=== PATIENT | male | born 1980 | race American Indian/Alaskan Native ===

== ENCOUNTER 2017-05-13 08:56 | Emergency (ER) | payer SELFPAY ==
[2017-05-13 09:12] VITALS: O2SAT 100
[2017-05-13 09:27] VITALS: BMI 26.3
--- NOTE | 2017-05-13 10:39 | ED PDOC ---
Arrival/HPI - General Chief Complaint: Lower Extremity Problem/Injury Time Seen by Provider: 05/13/17 09:16 Historian: Patient - History of Present Illness Narrative History of Present Illness (Text): 05/13/17 10:35 36 yo M presents with injury to the L 4th toe last night, when he struck it against a hard object. Reports pain, bruising and swelling. Denies any numbness , or any other injury. PMD none Past Medical History - Provider Review Nursing Documentation Reviewed: Yes - Infectious Disease Hx of Infectious Diseases: None - Psychiatric Hx Substance Use: No - Anesthesia Hx Anesthesia: No Family/Social History - Physician Review Nursing Documentation Reviewed: Yes Family/Social History: No Known Family HX Smoking Status: Never Smoked Hx Alcohol Use: No Hx Substance Use: No Allergies/Home Meds Allergies/Adverse Reactions: Allergies shellfish derived Allergy (Mild, Verified 05/13/17 09:40) ITCHING Review of Systems - Review of Systems Constitutional: Normal. absent: Fatigue, Weight Change, Fevers Musculoskeletal: Normal, Arthralgias. absent: Back Pain, Neck Pain Skin: Normal. absent: Rash, Pruritis, Skin Lesions Physical Exam Vital Signs Reviewed: Yes Vital Signs Temp Pulse Resp BP Pulse Ox 05/13/17 09:11 98.1 F 83 16 156/88 H 100 Temperature: Afebrile Blood Pressure: Hypertensive Pulse: Regular Respiratory Rate: Normal Appearance: Positive for: Well-Appearing, Non-Toxic, Comfortable Pain Distress: Mild Mental Status: Positive for: Alert and Oriented X 3 - Systems Exam Head: Present: Atraumatic, Normocephalic Lower Extremity: Present: NORMAL PULSES, Neurovascularly Intact, Capillary Refill < 2 s, Other (L foot : +tenderness, +mild edema and ecchymosis to the 4th toe, distal sensation intact, cap refill normal). No: Edema, Tenderness, Swelling, Erythema, Temperature Abnormalties Neurological: Present: GCS=15, CN II-XII Intact Skin: Present: Warm, Dry, Normal Color. No: Rashes Medical Decision Making ED Course and Treatment: 05/13/17 10:38 36 yo M presents with injury to the L 4th toe last night. Plan: - XR L foot - tylenol po XR L 4th toe : (+) fracture of the proximal phalanx, (-) dislocation, as read by PA XR results d/w the pt in great detail. Toe taping applied. Advised to f/u with podiatry referral provided in 1-2 days without fail. Advised to return to the ER at any time for any new or worsening symptoms. - RAD Interpretation Radiology Orders: 05/13/17 09:49 FOOT LEFT 4TH DIGIT (TOE) [RAD] Stat - Medication Orders Current Medication Orders: Discontinued Medications Acetaminophen (Tylenol 325mg Tab) 975 mg PO STAT STA Stop: 05/13/17 09:50 Last Admin: 05/13/17 09:58 Dose: 975 mg - PA / [employer] / Resident Statement MD/DO has reviewed & agrees with the documentation as recorded. Disposition/Present on Arrival - Present on Arrival Any Indicators Present on Arrival: No History of DVT/PE: No History of Uncontrolled Diabetes: No Urinary Catheter: No History of Decub. Ulcer: No History Surgical Site Infection Following: None - Disposition Have Diagnosis and Disposition been Completed?: Yes Diagnosis: Toe fracture, left Disposition: HOME/ ROUTINE Disposition Time: 10:30 Patient Plan: Discharge Condition: STABLE Discharge Instructions (ExitCare): Toe Fracture (ED) Print Language: BHUTANESE Additional Instructions: Thank you for letting us take care of you today. You were treated for toe fracture. The emergency medical care you received today was directed at your acute symptoms. If you were prescribed any medication, please fill it and take as directed. It may take several days for your symptoms to resolve. Return to the Emergency Department if your symptoms worsen, do not improve, or if you have any other problems. Please contact one of the physicians/clinics you have been referred to that are listed on the Patient Visit Information form that is included in your discharge packet. Bring any paperwork you were given at discharge with you along with any medications you are taking to your follow up visit. Our treatment cannot replace ongoing medical care by a primary care provider (PCP) outside of the emergency department. Thank you for allowing the [facility] team to be part of your care today. If you had an X-Ray: A Radiologist will review the ED reading if any change in treatment is needed we will contact you. Prescriptions: Naproxen 500 mg PO BID #30 tab Referrals: Ella Stephens, [Primary Care Provider] - Follow up with primary Cyndy Post DPM [Staff Provider] - Follow up with primary Forms: [employer] ([place]), WORK NOTE
--- NOTE | 2017-05-13 11:01 | RAD ---
PROCEDURE: Left 4th toe HISTORY: trauma COMPARISON: Not available TECHNIQUE: Multiple views of left foot attention 4th digit FINDINGS: There is an oblique intra-articular fracture of the distal aspect of the 4th proximal phalanx. There is minimal displacement. There is no other fracture identified. The remaining joint spaces and articular surfaces are intact. IMPRESSION: Oblique intra-articular minimally displaced fracture distal aspect 4th proximal phalanx.
[2017-05-13 11:04] VITALS: BP 154/86; PULSE 80; RESP 17; TEMP 98.5
== END 2017-05-13 11:23 | disposition home or self-care (01) ==
LOC: ED 08:56
DX: S92.512A Displaced fracture of proximal phalanx of left lesser toe(s), initial encounter for closed fracture (principal); W22.8XXA Striking against or struck by other objects, initial encounter; Y93.89 Activity, other specified; Y92.89 Other specified places as the place of occurrence of the external cause

== ENCOUNTER 2017-07-10 08:23 | Emergency (ER) | payer SELFPAY ==
[2017-07-10 08:24] VITALS: BMI 26.3
[2017-07-10 08:38] VITALS: RESP 16; TEMP 98.1
--- NOTE | 2017-07-10 09:31 | ED PDOC ---
Arrival/HPI - General Historian: Patient - History of Present Illness Time/Duration: Other (see HPI) Quality: Aching Context: Home - General Chief Complaint: Back Pain Time Seen by Provider: 07/10/17 08:35 - History of Present Illness Narrative History of Present Illness (Text): 07/10/17 09:28 36-year-old male presents to the emergency department complaining of right flank pain since yesterday morning. Pain constant however pain worsen different times of the day. He is stated is not related with food intake or movement. Patient admitted having similar symptoms in the past year. Patient denies shortness of breath, chest pain, abdominal pain, hematuria, discharge, or testicular pain. Noted urinary frequency for 1 week. (Natasha Nicholson) Past Medical History - Provider Review Nursing Documentation Reviewed: Yes - Infectious Disease Hx of Infectious Diseases: None - Cardiac Hx Cardiac Disorders: No - Pulmonary Hx Respiratory Disorders: No - Neurological Hx Neurological Disorder: No - HEENT Hx HEENT Disorder: No - Renal Hx Renal Disorder: No - Endocrine/Metabolic Hx Endocrine Disorders: No - Hematological/Oncological Hx Blood Disorders: No - Integumentary Hx Dermatological Disorder: No - Musculoskeletal/Rheumatological Hx Musculoskeletal Disorders: No - Gastrointestinal Hx Gastrointestinal Disorders: No - Genitourinary/Gynecological Hx Genitourinary Disorders: No - Psychiatric Hx Psychophysiologic Disorder: No Hx Substance Use: No - Surgical History Hx Orthopedic Surgery: Yes - Anesthesia Hx Anesthesia: No Family/Social History - Physician Review Nursing Documentation Reviewed: Yes Family/Social History: Other (Contributory) Smoking Status: Never Smoked Hx Alcohol Use: No Hx Substance Use: No Allergies/Home Meds Allergies/Adverse Reactions: Allergies shellfish derived Allergy (Mild, Verified 07/10/17 08:38) ITCHING Review of Systems - Review of Systems Constitutional: Normal. absent: Fatigue, Weight Change, Fevers Eyes: Normal ENT: Normal Respiratory: Normal. absent: SOB, Cough Cardiovascular: Normal. absent: Chest Pain Gastrointestinal: Other (Flank pain.). absent: Nausea, Vomiting Genitourinary Male: Frequency. absent: Dysuria, Hematuria, Urinary Output Changes Musculoskeletal: Normal, Back Pain. absent: Arthralgias, Neck Pain, Joint Swelling, Myalgias Skin: Normal. absent: Rash Neurological: Normal. absent: Headache, Dizziness, Focal Weakness, Gait Changes , Speech Changes, Facial Droop, Disequilibrium, Seizure Endocrine: Normal Hemo/Lymphatic: Normal Psychiatric: Normal Physical Exam Temperature: Afebrile Blood Pressure: Normal Pulse: Regular Respiratory Rate: Normal Appearance: Positive for: Well-Appearing, Non-Toxic, Comfortable Pain Distress: None Mental Status: Positive for: Alert and Oriented X 3 - Systems Exam Head: Present: Atraumatic, Normocephalic Pupils: Present: PERRL Extroacular Muscles: Present: EOMI Conjunctiva: Present: Normal Mouth: Present: Moist Mucous Membranes Neck: Present: Normal Range of Motion Respiratory/Chest: Present: Clear to Auscultation, Good Air Exchange. No: Respiratory Distress, Accessory Muscle Use Cardiovascular: Present: Regular Rate and Rhythm, Normal S1, S2. No: Murmurs Abdomen: Present: Normal Bowel Sounds. No: Tenderness, Distention, Peritoneal Signs Back: Present: Normal Inspection. No: CVA Tenderness, Paraspinal Tenderness, Pain with Leg Raise Upper Extremity: Present: Normal Inspection, Normal ROM, NORMAL PULSES, Neurovascularly Intact, Capillary Refill < 2s. No: Cyanosis, Edema Lower Extremity: Present: Normal Inspection, NORMAL PULSES, Normal ROM, Neurovascularly Intact, Capillary Refill < 2 s. No: Edema, CALF TENDERNESS Neurological: Present: GCS=15, CN II-XII Intact, Speech Normal, Motor Func Grossly Intact, Normal Sensory Function, Normal Cerebellar Funct, Gait Normal, Memory Normal Skin: Present: Warm, Dry, Normal Color. No: Rashes Psychiatric: Present: Alert, Oriented x 3, Normal Insight, Normal Concentration Vital Signs Temp Pulse Resp BP Pulse Ox 07/10/17 13:40 56 L 16 117/76 98 07/10/17 11:44 74 16 124/62 98 07/10/17 08:38 98.1 F 70 16 91/62 L 97 Medical Decision Making Re-evaluation Time: 14:40 Reassessment Condition: Re-examined, Improved - Lab Interpretations I have reviewed the lab results: Yes Interpretation: No clinic. lab abnormalty ED Course and Treatment: 07/10/17 14:40 ccession No. : [id number] Patient Name / ID : BRENDA MESA / [id number] Exam Date : 07/10/2017 13:33:44 ( Approved ) Study Comment : Sex / Age : M / 36Y Creator : Tramaine Garcia MD Dictator : Tramaine Garcia MD Sr. Director : Registered Travel Nurse : Tramaine Garcia MD Approver2 : Report Date : 07/10/2017 14:21:18 My Comment : HISTORY: right sided back pain COMPARISON: No prior. FINDINGS: LUNGS: No active pulmonary disease. PLEURA: No significant pleural effusion identified, no pneumothorax apparent. CARDIOVASCULAR: Normal. OSSEOUS STRUCTURES: No significant abnormalities. VISUALIZED UPPER ABDOMEN: Normal. OTHER FINDINGS: None. IMPRESSION: No active disease. 07/10/17 14:40 Re-evaluation. Patient feels better. Discussed results and plan with patient who expresses understanding. All questions answered and there is agreement with the plan to discharge home with instructions. Patient stable for discharge. Return if symptoms persist or worsen He was recommended to follow-up with primary care physician in 1-2 days. To continue taking medication as instructed. Return to emergency if symptoms worsen. (Natasha Nicholson) 07/10/17 16:42 Symptoms not exertional. No associated chest pain or shortness of breath. No dizziness or lightheadedness. No pulsatile masses palpated. There is palpable back pain worse with range of motion. Blood pressure and pulse equal in both upper extremities. NO WEAKNESS NOTED WITH GRASP. Patient able to range upper extremity against resistance with no weakness. Not orthostatic on re- examination. No rash. Denies diabetes. Denies past history of cardiac disease. UA unremarkable. CT report reviewed. Stressed need for close follow-up. On re- exam, no chest pain or shortness of breath, blood pressure stable. (Mehrdad Ortiz) - Lab Interpretations Microbiology Results: Microbiology Results 07/10/17 10:02 Urine Urine Culture - Final No Growth (<1,000 CFU/ML) Lab Results: 07/10/17 10:08 07/10/17 10:08 Lab Results 07/10/17 11:20: Lipase 90 07/10/17 10:08: Sodium 142, Potassium 4.3, Chloride 108 H, Carbon Dioxide 26, Anion Gap 12, BUN 22 H, Creatinine 0.9, Est GFR ( Amer) > 60, Est GFR ( Non-Af Amer) > 60, Random Glucose 82, Calcium 9.2, Total Bilirubin 1.1, AST 23, ALT 23, Alkaline Phosphatase 39, Total Protein 6.8, Albumin 4.1, Globulin 2.7, Albumin/Globulin Ratio 1.5 07/10/17 10:08: WBC 5.5, RBC 4.40, Hgb 13.3 L, Hct 39.3 L, MCV 89.3, MCH 30.2, MCHC 33.8, RDW 13.1, Plt Count 227, MPV 8.8, Gran % 56.8, Lymph % (Auto) 33.0, [place] % (Auto) 7.1 H, Eos % (Auto) 2.9, Baso % (Auto) 0.2, Gran # 3.14, Lymph # 1.8, [place] # 0.4, Eos # 0.2, Baso # 0.01 07/10/17 10:02: Urine Color Light yellow, Urine Appearance Clear, Urine pH 6.0, Ur Specific [place] 1.020, Urine Protein Negative, Urine Glucose (UA) Negative, Urine Ketones Negative, Urine Blood Negative, Urine Nitrate Negative, Urine Bilirubin Negative, Urine Urobilinogen 0.2, Ur Leukocyte Esterase Negative 07/10/17 10:00: D-Dimer, Quantitative < 200 - RAD Interpretation Narrative RAD Interpretations (Text): 07/10/17 12:49 Accession No. : [id number] Patient Name / ID : BRENDA MESA / [id number] Exam Date : 07/10/2017 11:15:27 ( Approved ) Study Comment : Sex / Age : M / 36Y Creator : Tramaine Garcia MD Dictator : Tramaine Garcia MD Sr. Director : Registered Travel Nurse : Tramaine Garcia MD Approver2 : Report Date : 07/10/2017 12:32:40 My Comment : PROCEDURE: CT Abdomen and Pelvis without intravenous contrast HISTORY: Right flank pain COMPARISON: None. TECHNIQUE: Without contrast.. Contrast Dose: Radiation dose: Total exam DLP = 674 mGy-cm. This CT exam was performed using one or more of the following dose reduction techniques: Automated exposure control, adjustment of the mA and/or kV according to patient size, and/or use of iterative reconstruction technique. FINDINGS: LOWER THORAX: Unremarkable. LIVER: Unremarkable. No gross lesion or ductal dilatation. GALLBLADDER AND BILE DUCTS: Unremarkable. PANCREAS: Unremarkable. No gross lesion or ductal dilatation. SPLEEN: Unremarkable. ADRENALS: Unremarkable. No mass. KIDNEYS AND URETERS: Unremarkable. No hydronephrosis. No solid mass. VASCULATURE: Unremarkable. No aortic aneurysm. BOWEL: Unremarkable. No obstruction. No gross mural thickening. APPENDIX: Unremarkable. Normal appendix. PERITONEUM: Unremarkable. No free fluid. No free air. LYMPH NODES: Unremarkable. No enlarged lymph nodes. BLADDER: Unremarkable. REPRODUCTIVE: Unremarkable. BONES: No acute fracture. OTHER FINDINGS: None. IMPRESSION: Unremarkable non contrast enhanced CT of the abdomen and pelvis. (Natasha Nicholson) Radiology Orders: 07/10/17 09:31 ABD & PELVIS W/O PO OR IV CONT [CT] Stat 07/10/17 13:05 CHEST PORTABLE [RAD] Stat - Medication Orders Current Medication Orders: Discontinued Medications Sodium Chloride (Sodium Chloride 0.9%) 1,000 mls @ 999 mls/hr IV .Q1H1M STA Stop: 07/10/17 10:32 Last Admin: 07/10/17 10:11 Dose: 999 mls/hr eMAR Start Stop Document 07/10/17 10:11 (Rec: 07/10/17 10:11 [id number]) Intravenous Solution Start Date 07/10/17 Start Time 10:11 Ketorolac Tromethamine (Toradol) 15 mg IVP STAT STA Stop: 07/10/17 09:32 Last Admin: 07/10/17 10:12 Dose: 15 mg MAR Pain Assessment Document 07/10/17 10:12 (Rec: 07/10/17 10:12 [id number]) Pain Reassessment Is this a pain reassessment? Yes Sleep Is patient sleeping during reassessment? No Presence of Pain Presence of Pain Yes IVP Administration Document 07/10/17 10:12 MD (Rec: 07/10/17 10:12 [id number]) Charges for Administration # of IVP Administrations 1 Ketorolac Tromethamine (Toradol) 15 mg IVP STAT STA Stop: 07/10/17 13:35 Last Admin: 07/10/17 14:07 Dose: 15 mg MAR Pain Assessment Document 07/10/17 14:07 MD (Rec: 07/10/17 14:07 [id number]) Pain Reassessment Is this a pain reassessment? Yes Sleep Is patient sleeping during reassessment? No Presence of Pain Presence of Pain Yes IVP Administration Document 07/10/17 14:07 MD (Rec: 07/10/17 14:07 [id number]) Charges for Administration # of IVP Administrations 1 Ondansetron HCl (Zofran Inj) 4 mg IVP STAT STA Stop: 07/10/17 09:32 Last Admin: 07/10/17 10:12 Dose: 4 mg IVP Administration Document 07/10/17 10:12 (Rec: 07/10/17 10:12 [id number]) Charges for Administration # of IVP Administrations 1 Disposition/Present on Arrival - Present on Arrival Any Indicators Present on Arrival: No History of DVT/PE: No History of Uncontrolled Diabetes: No Urinary Catheter: No History of Decub. Ulcer: No History Surgical Site Infection Following: None - Disposition Have Diagnosis and Disposition been Completed?: Yes Disposition Time: 14:41 Patient Plan: Discharge - Disposition Diagnosis: Back pain, Musculoskeletal pain Disposition: HOME/ ROUTINE Condition: GOOD Discharge Instructions (ExitCare): Musculoskeletal Pain (ED) Additional Instructions: Call primary doctor in 1-2 days for follow-up visit. Take medication as instructed with food. Return to the emergency if his system worsen. Do not drive or operate machine that is worth taking Robaxin. Prescriptions: Famotidine [Pepcid] 40 mg PO DAILY #10 tablet Methocarbamol [Robaxin-750] 750 mg PO TID #21 tab Naproxen 500 mg PO BID PRN #14 tab PRN Reason: Pain, Severe (8-10) Referrals: [facility] [Outside] - Follow up with primary [facility] [Outside] - Follow up with primary Forms: [employer] ([place]ian), WORK NOTE
[2017-07-10] MEDS ORDERED: Sodium Chloride 0.9% 1,000 ML IV STA (09:32)
[2017-07-10 10:13] LABS: BASO # 0.01 K/mm3 (0.0-2.0); BASO % 0.2 % (0.0-3.0); EOS # 0.2 (0.0-0.7); EOS % 2.9 % (1.5-5.0); GRAN # 3.14 (1.4-6.5); GRAN % 56.8 % (50.0-68.0); HEMATOCRIT 39.3 % (42.0-52.0); LYMPH # 1.8 (1.2-3.4); MEAN CELL VOLUME 89.3 fl (80.0-105.0); MEAN CORPUSCULAR HEMOGLOBIN 30.2 pg (25.0-35.0); MEAN CORPUSCULAR HGB CONC 33.8 g/dl (31.0-37.0); MEAN PLATELET VOLUME 8.8 fl (7.0-11.0); MONO # 0.4 (0.1-0.6); MONO % 7.1 % (1.0-6.0); RED CELL DISTRIBUTION WIDTH 13.1 % (11.5-14.5); WHITE BLOOD COUNT 5.5 10^3/ul (4.5-11.0)
[2017-07-10 10:14] LABS: URINE BILIRUBIN NEGATIVE (NEGATIVE); URINE BLOOD NEGATIVE (NEGATIVE); URINE GLUCOSE (UA) NEGATIVE (NEGATIVE); URINE KETONE NEGATIVE (NEGATIVE); URINE LEUKOCYTE ESTERASE NEGATIVE Leu/uL (NEGATIVE); URINE PROTEIN NEGATIVE mg/dL (<30 mg/dL); URINE UROBILINOGEN 0.2 E.U./dL (<1 E.U./dL)
[2017-07-10 10:17] LABS: URINE APPEARANCE CLEAR (CLEAR); URINE COLOR LIGHT YELLOW (YELLOW)
[2017-07-10 10:24] LABS: ALB/GLOB RATIO 1.5 (1.1-1.8); ALKALINE PHOSPHATASE 39 U/L (38-126); ALT/SGPT 23 U/L (7-56); AST/SGOT 23 U/L (17-59); BILIRUBIN,TOTAL 1.1 mg/dL (0.2-1.3); BLOOD UREA NITROGEN 22 mg/dL (7-21); CALCIUM 9.2 mg/dL (8.4-10.5); CARBON DIOXIDE 26 mmol/L (21-33); CHLORIDE 108 mmol/L (98-107); GFR AFRICAN-AMERICAN > 60; GLUCOSE,RANDOM 82 mg/dL (70-110); POTASSIUM 4.3 mmol/L (3.6-5.0); SODIUM 142 mmol/L (132-148); TOTAL PROTEIN 6.8 g/dL (5.8-8.3)
[2017-07-10 11:45] VITALS: O2SAT 98
--- NOTE | 2017-07-10 12:34 | CT ---
PROCEDURE: CT Abdomen and Pelvis without intravenous contrast HISTORY: Right flank pain COMPARISON: None. TECHNIQUE: Without contrast.. Contrast Dose: Radiation dose: Total exam DLP = 674 mGy-cm. This CT exam was performed using one or more of the following dose reduction techniques: Automated exposure control, adjustment of the mA and/or kV according to patient size, and/or use of iterative reconstruction technique. FINDINGS: LOWER THORAX: Unremarkable. LIVER: Unremarkable. No gross lesion or ductal dilatation. GALLBLADDER AND BILE DUCTS: Unremarkable. PANCREAS: Unremarkable. No gross lesion or ductal dilatation. SPLEEN: Unremarkable. ADRENALS: Unremarkable. No mass. KIDNEYS AND URETERS: Unremarkable. No hydronephrosis. No solid mass. VASCULATURE: Unremarkable. No aortic aneurysm. BOWEL: Unremarkable. No obstruction. No gross mural thickening. APPENDIX: Unremarkable. Normal appendix. PERITONEUM: Unremarkable. No free fluid. No free air. LYMPH NODES: Unremarkable. No enlarged lymph nodes. BLADDER: Unremarkable. REPRODUCTIVE: Unremarkable. BONES: No acute fracture. OTHER FINDINGS: None. IMPRESSION: Unremarkable non contrast enhanced CT of the abdomen and pelvis.
--- NOTE | 2017-07-10 14:23 | RAD ---
HISTORY: right sided back pain COMPARISON: No prior. FINDINGS: LUNGS: No active pulmonary disease. PLEURA: No significant pleural effusion identified, no pneumothorax apparent. CARDIOVASCULAR: Normal. OSSEOUS STRUCTURES: No significant abnormalities. VISUALIZED UPPER ABDOMEN: Normal. OTHER FINDINGS: None. IMPRESSION: No active disease.
[2017-07-10 16:42] VITALS: BP 117/76; PULSE 56
== END 2017-07-10 14:40 | disposition home or self-care (01) ==
LOC: ED 08:23
DX: M54.9 Dorsalgia, unspecified (principal)
CPT/HCPCS: 71010; 74176; 80053; 81003; 83690; 85025; 85378; 87086; 96374; 96375; 96376; 99285; J1885; J2405; J7040

== ENCOUNTER 2018-02-02 18:37 | Emergency (ER) | payer OTHER ==
[2018-02-02 18:41] VITALS: BMI 26.9
--- NOTE | 2018-02-02 19:44 | ED PDOC ---
Arrival/HPI - General Chief Complaint: Weakness/Neurological Deficit Time Seen by Provider: 02/02/18 19:28 Historian: Patient - History of Present Illness Narrative History of Present Illness (Text): 02/02/18 19:41 A 37 year old male, whose past medical history includes chronic lower back pain , presents to the emergency department complaining of generalized weakness over the past few days. Patient notes occasional nausea and soft bowel movements. Patient denies any fever, chills, vomiting, abdominal pain, chest pain, shortness of breath or any other complaints. On note patient reports he works long hours. Time/Duration: Other (few days) Symptom Course: Unchanged Context: Home, Work Past Medical History - Provider Review Nursing Documentation Reviewed: Yes - Infectious Disease Hx of Infectious Diseases: None - Cardiac Hx Cardiac Disorders: No - Pulmonary Hx Respiratory Disorders: No - Neurological Hx Neurological Disorder: No - HEENT Hx HEENT Disorder: No - Renal Hx Renal Disorder: No - Endocrine/Metabolic Hx Endocrine Disorders: No - Hematological/Oncological Hx Blood Disorders: No - Integumentary Hx Dermatological Disorder: No - Musculoskeletal/Rheumatological Hx Musculoskeletal Disorders: No - Gastrointestinal Hx Gastrointestinal Disorders: No - Genitourinary/Gynecological Hx Genitourinary Disorders: No - Psychiatric Hx Psychophysiologic Disorder: No Hx Substance Use: No - Surgical History Hx Orthopedic Surgery: Yes - Anesthesia Hx Anesthesia: Yes Hx Anesthesia Reactions: No Hx Malignant Hyperthermia: No Family/Social History - Physician Review Nursing Documentation Reviewed: Yes Family/Social History: No Known Family HX Smoking Status: Never Smoked Hx Alcohol Use: Yes Frequency of alcohol use: Socially Hx Substance Use: No Allergies/Home Meds Allergies/Adverse Reactions: Allergies shellfish derived Allergy (Mild, Verified 07/10/17 08:38) ITCHING Home Medications: Home Meds Medication Instructions Recorded Confirmed No Known Home Med 02/02/18 02/02/18 Review of Systems - Physician Review All systems were reviewed & negative as marked: Yes - Review of Systems Constitutional: Other (generalized weakness). absent: Fevers, Night Sweats Respiratory: absent: SOB Cardiovascular: absent: Chest Pain Gastrointestinal: Stool Changes, Nausea. absent: Abdominal Pain, Vomiting Physical Exam Vital Signs Reviewed: Yes Vital Signs Temp Pulse Resp BP Pulse Ox 02/02/18 18:39 98.2 F 65 18 123/83 97 Temperature: Afebrile Blood Pressure: Normal Pulse: Regular Respiratory Rate: Normal Appearance: Positive for: Well-Appearing, Non-Toxic, Comfortable Pain Distress: None Mental Status: Positive for: Alert and Oriented X 3 - Systems Exam Head: Present: Atraumatic, Normocephalic Pupils: Present: PERRL Extroacular Muscles: Present: EOMI Conjunctiva: Present: Normal Mouth: Present: Moist Mucous Membranes Neck: Present: Normal Range of Motion Respiratory/Chest: Present: Clear to Auscultation, Good Air Exchange. No: Respiratory Distress, Accessory Muscle Use Cardiovascular: Present: Regular Rate and Rhythm, Normal S1, S2. No: Murmurs Abdomen: Present: Normal Bowel Sounds. No: Tenderness, Distention, Peritoneal Signs Back: Present: Normal Inspection. No: Midline Tenderness, Paraspinal Tenderness Upper Extremity: Present: Normal Inspection, NORMAL PULSES. No: Cyanosis, Edema Lower Extremity: Present: Normal Inspection, NORMAL PULSES. No: Edema Neurological: Present: GCS=15, CN II-XII Intact, Speech Normal Skin: Present: Warm, Dry, Normal Color. No: Rashes Psychiatric: Present: Alert, Oriented x 3, Normal Insight, Normal Concentration Medical Decision Making ED Course and Treatment: 02/02/18 19:41 Impression: A 37 year old male with generalized weakness. Patient notes occasional nausea and soft bowel movements. Plan: -- Labs -- Urinalysis -- Reassess and disposition Progress Notes: 02/02/18 23:48 Pt eloped from ER prior to receiving discharge instructions. - Lab Interpretations Lab Results: 02/02/18 19:48 02/02/18 19:48 Lab Results 02/02/18 19:48: WBC 6.3, RBC 4.45, Hgb 13.2 L, Hct 39.4 L, MCV 88.5, MCH 29.7, MCHC 33.5, RDW 12.7, Plt Count 235, MPV 8.7 02/02/18 19:48: Sodium 143, Potassium 4.2, Chloride 105, Carbon Dioxide 27, Anion Gap 16, BUN 18, Creatinine 1.0, Est GFR ( Amer) > 60, Est GFR (Non- Af Amer) > 60, Random Glucose 87, Calcium 9.4, Total Bilirubin 0.4, AST 24, ALT 22, Alkaline Phosphatase 50, Total Protein 7.0, Albumin 4.3, Globulin 2.7, Albumin/Globulin Ratio 1.6 02/02/18 19:48: Urine Color Light yellow, Urine Appearance Clear, Urine pH 7.0, Ur Specific [place] 1.010, Urine Protein Negative, Urine Glucose (UA) Negative, Urine Ketones Negative, Urine Blood Negative, Urine Nitrate Negative, Urine Bilirubin Negative, Urine Urobilinogen 0.2, Ur Leukocyte Esterase Negative I have reviewed the lab results: Yes - Scribe Statement The provider has reviewed the documentation as recorded by the Lowell Parker Provider Scribe Attestation: All medical record entries made by the Scribe were at my direction and personally dictated by me. I have reviewed the chart and agree that the record accurately reflects my personal performance of the history, physical exam, medical decision making, and the department course for this patient. I have also personally directed, reviewed, and agree with the discharge instructions and disposition. Disposition/Present on Arrival - Present on Arrival Any Indicators Present on Arrival: No History of DVT/PE: No History of Uncontrolled Diabetes: No Urinary Catheter: No History of Decub. Ulcer: No History Surgical Site Infection Following: None - Disposition Have Diagnosis and Disposition been Completed?: Yes Diagnosis: Weakness Disposition: ELOPEMENT - ER ONLY Disposition Time: 23:00 Condition: STABLE Discharge Instructions (ExitCare): Weakness (ED) Referrals: PCP,NO [Primary Care Provider] - Follow up with primary Forms: [employer] (Uzbek)
[2018-02-02 20:00] LABS: URINE BILIRUBIN NEGATIVE (NEGATIVE); URINE BLOOD NEGATIVE (NEGATIVE); URINE GLUCOSE (UA) NEGATIVE (NEGATIVE); URINE LEUKOCYTE ESTERASE NEGATIVE Leu/uL (NEGATIVE); URINE PROTEIN NEGATIVE mg/dL (<30 mg/dL); URINE UROBILINOGEN 0.2 E.U./dL (<1 E.U./dL)
[2018-02-02 20:01] LABS: ALB/GLOB RATIO 1.6 (1.1-1.8); ALBUMIN 4.3 g/dL (3.0-4.8); ALT/SGPT 22 U/L (7-56); AST/SGOT 24 U/L (17-59); BLOOD UREA NITROGEN 18 mg/dL (7-21); CALCIUM 9.4 mg/dL (8.4-10.5); GFR AFRICAN-AMERICAN > 60; GFR NON-AFRICAN AMERICAN > 60
[2018-02-02 20:02] LABS: HEMOGLOBIN 13.2 g/dL (14.0-18.0); MEAN CELL VOLUME 88.5 fl (80.0-105.0); MEAN CORPUSCULAR HEMOGLOBIN 29.7 pg (25.0-35.0); MEAN CORPUSCULAR HGB CONC 33.5 g/dl (31.0-37.0); MEAN PLATELET VOLUME 8.7 fl (7.0-11.0); RBC 4.45 10^6/uL (3.5-6.1); RED CELL DISTRIBUTION WIDTH 12.7 % (11.5-14.5); WHITE BLOOD COUNT 6.3 10^3/ul (4.5-11.0)
[2018-02-02 20:04] LABS: URINE APPEARANCE CLEAR (CLEAR); URINE COLOR LIGHT YELLOW (YELLOW)
[2018-02-02 23:55] VITALS: BP 0/0; PULSE 0; RESP 0; TEMP 0; O2SAT 0
== END 2018-02-02 23:25 | disposition left against medical advice (07) ==
LOC: ED 18:37
DX: R53.1 Weakness (principal)

== ENCOUNTER 2018-05-13 22:34 | Emergency (ER) | payer OTHER ==
[2018-05-13 23:24] VITALS: BMI 27.4
[2018-05-13] MEDS ORDERED: Sodium Chloride 0.9% 1,000 ML IV SCH (23:45)
--- NOTE | 2018-05-14 00:01 | ED PDOC ---
Arrival/HPI - General Chief Complaint: Abdominal Pain Time Seen by Provider: 05/13/18 23:38 Historian: Patient - History of Present Illness Narrative History of Present Illness (Text): 05/13/18 23:56 A 37 year old male, whose past medical history includes chronic lower back pain , presents to the emergency department complaining of right flank pain with associated abdominal pain. Notes having this pain for approximately 1 year and has become worse today. Describes pain as "being struck by lightning" Patient states he is concerned he may be experiencing an aneurysm due to WebMD findings and including due to family history (two sisters had aneurysm, one of them confirming having experienced similar pain in the past). Patient notes also experiencing constipation, diarrhea, urinary frequency hourly, and difficulty keeping food down. Presents with no other symptoms at this time. No dark or bloody stool. No penile discharge or hx of stds. PMD: Located at [facility] in [place]. Time/Duration: Other (1 year, however today pain has worsened) Symptom Onset: Gradual Symptom Course: Worsening Quality: Other ("struck by lightning" sensation.) Past Medical History - Provider Review Nursing Documentation Reviewed: Yes - Infectious Disease Hx of Infectious Diseases: None - Cardiac Hx Cardiac Disorders: No - Pulmonary Hx Respiratory Disorders: No - Neurological Hx Neurological Disorder: No - HEENT Hx HEENT Disorder: No - Renal Hx Renal Disorder: No - Endocrine/Metabolic Hx Endocrine Disorders: No - Hematological/Oncological Hx Blood Disorders: No - Integumentary Hx Dermatological Disorder: No - Musculoskeletal/Rheumatological Hx Musculoskeletal Disorders: No - Gastrointestinal Hx Gastrointestinal Disorders: No - Genitourinary/Gynecological Hx Genitourinary Disorders: No - Psychiatric Hx Psychophysiologic Disorder: No Hx Substance Use: No - Surgical History Hx Orthopedic Surgery: Yes (R knee sx) - Anesthesia Hx Anesthesia: Yes Hx Anesthesia Reactions: No Hx Malignant Hyperthermia: No Family/Social History - Physician Review Nursing Documentation Reviewed: Yes Family/Social History: Other (two sisters had aneurysm, one of them confirming having experienced similar pain in the past.) Smoking Status: Never Smoked Hx Alcohol Use: Yes Hx Substance Use: No Allergies/Home Meds Allergies/Adverse Reactions: Allergies shellfish derived Allergy (Mild, Verified 07/10/17 08:38) ITCHING Home Medications: Home Meds Medication Instructions Recorded Confirmed Doxycycline Hyclate [Vibramycin] 1 cap PO BID 05/13/18 05/13/18 Review of Systems - Review of Systems Constitutional: Normal Eyes: Normal ENT: Normal Respiratory: Normal Cardiovascular: Normal Gastrointestinal: Abdominal Pain (right-side), Constipation, Diarrhea, Nausea. absent: Vomiting (gagging sensation when experiencing pain, and also unable to keep down food.) Genitourinary Male: Frequency Musculoskeletal: Back Pain (right-side flank pain) Skin: Normal Neurological: Normal Endocrine: Normal Hemo/Lymphatic: Normal Psychiatric: Normal Physical Exam Vital Signs Reviewed: Yes Vital Signs Temp Pulse Resp BP Pulse Ox 05/14/18 04:03 97.9 F 52 L 14 98/57 L 96 05/14/18 02:40 97.8 F 53 L 14 97/66 L 98 05/13/18 23:30 97.8 F 51 L 18 109/62 98 Temperature: Afebrile Blood Pressure: Normal Pulse: Regular Respiratory Rate: Normal Appearance: Positive for: Well-Appearing, Non-Toxic, Comfortable Pain Distress: None Mental Status: Positive for: Alert and Oriented X 3 - Systems Exam Head: Present: Atraumatic, Normocephalic Pupils: Present: PERRL Extroacular Muscles: Present: EOMI Conjunctiva: Present: Normal Mouth: Present: Moist Mucous Membranes Neck: Present: Normal Range of Motion Respiratory/Chest: Present: Clear to Auscultation, Good Air Exchange. No: Respiratory Distress, Accessory Muscle Use Cardiovascular: Present: Regular Rate and Rhythm, Normal S1, S2. No: Murmurs Abdomen: Present: Tenderness, Other (patient experiences periumbilical pain upon examination.). No: Distention, Peritoneal Signs Back: Present: Normal Inspection Upper Extremity: Present: Normal Inspection. No: Cyanosis, Edema Lower Extremity: Present: Normal Inspection. No: Edema Neurological: Present: GCS=15, CN II-XII Intact, Speech Normal Skin: Present: Warm, Dry, Normal Color. No: Rashes Psychiatric: Present: Alert, Oriented x 3, Normal Insight, Normal Concentration Medical Decision Making ED Course and Treatment: 05/14/18 00:00 Impression: 37 year old male with right flank pain with associated abdominal pain. Physical exam shows patient experiencing periumbilical pain; no other acute findings on examination. Plan: -- Abd/Pelvis CT -- Labs -- Venous Blood Gas -- Urinalysis -- Pepcid -- IV Fluids -- Reassess and disposition Prior Visits: Notes and results from previous visits were reviewed. Patient was last seen in the emergency department on 02/02/2018 for generalized weakness. Patient eloped prior to receiving discharge instructions. Progress Notes: 05/14/2018 02:57 Abd/Pelvis CT IMPRESSION: No evidence of an acute abnormality. Dictator: Gabriel To MD pain improved, labs and imaging unremarkable. clear for d/c home. - Lab Interpretations Lab Results: 05/14/18 00:23 05/14/18 00:23 Lab Results 05/14/18 00:23: Sodium 143, Chloride 106, Potassium 4.0, Carbon Dioxide 26, Anion Gap 15, BUN 26 H, Creatinine 1.1, Est GFR ( Amer) > 60, Est GFR ( Non-Af Amer) > 60, Random Glucose 91, Calcium 9.4, Total Bilirubin 0.7, AST 25, ALT 23, Alkaline Phosphatase 49, Total Protein 7.3, Albumin 4.4, Globulin 2.9, Albumin/Globulin Ratio 1.5, Lipase 86 05/14/18 00:23: pO2 45, VBG pH 7.33, VBG pCO2 54.0, VBG HCO3 28.5 H, VBG Total CO2 30.2 H, VBG O2 Sat (Calc) 78.1 H, VBG Base Excess 1.5, VBG Potassium 3.9, Sodium 139.0, Chloride 106.0, Glucose 92, Lactate 0.7, FiO2 21.0, Venous Blood Potassium 3.9 05/14/18 00:23: Urine Color Yellow, Urine Appearance Clear, Urine pH 6.0, Ur Specific [place] >= 1.030, Urine Protein Trace H, Urine Glucose (UA) Negative, Urine Ketones Negative, Urine Blood Negative, Urine Nitrate Negative, Urine Bilirubin Negative, Urine Urobilinogen 0.2, Ur Leukocyte Esterase Negative, Urine RBC 0 - 2, Urine WBC 0 - 2, Ur Epithelial Cells 0 - 2, Urine Bacteria Few 05/14/18 00:23: WBC 7.9 D, RBC 4.46, Hgb 13.2 L, Hct 39.3 L, MCV 88.1, MCH 29.6 , MCHC 33.6, RDW 12.8, Plt Count 236, MPV 9.0, Gran % 41.8 L, Lymph % (Auto) 49.0 H, Ward % (Auto) 6.1 H, Eos % (Auto) 2.7, Baso % (Auto) 0.4, Gran # 3.30, Lymph # (Auto) 3.9 H, Ward # (Auto) 0.5, Eos # (Auto) 0.2, Baso # (Auto) 0.03 I have reviewed the lab results: Yes - RAD Interpretation Radiology Orders: 05/13/18 23:52 ABD & PELVIS IV CONTRAST ONLY [CT] Stat - Medication Orders Current Medication Orders: Discontinued Medications Famotidine (Pepcid) 20 mg IVP STAT STA Stop: 05/13/18 23:54 Last Admin: 05/14/18 00:09 Dose: 20 mg IVP Administration Document 05/14/18 00:09 GMD (Rec: 05/14/18 00:09 GMD [id number]) Charges for Administration # of IVP Administrations 1 Sodium Chloride (Sodium Chloride 0.9%) 1,000 mls @ 100 mls/hr IV .Q10H LILY Last Admin: 05/14/18 00:09 Dose: 100 mls/hr eMAR Start Stop Document 05/14/18 00:09 GMD (Rec: 05/14/18 00:10 GMD [id number]) Intravenous Solution Start Date 05/14/18 Start Time 00:10 - Scribe Statement The provider has reviewed the documentation as recorded by the Lowell Yadav Provider Scribe Attestation: All medical record entries made by the Amberibpcaheco were at my direction and personally dictated by me. I have reviewed the chart and agree that the record accurately reflects my personal performance of the history, physical exam, medical decision making, and the department course for this patient. I have also personally directed, reviewed, and agree with the discharge instructions and disposition. Disposition/Present on Arrival - Present on Arrival Any Indicators Present on Arrival: No History of DVT/PE: No History of Uncontrolled Diabetes: No Urinary Catheter: No History of Decub. Ulcer: No History Surgical Site Infection Following: None - Disposition Have Diagnosis and Disposition been Completed?: Yes Diagnosis: Abdominal pain Disposition: HOME/ ROUTINE Disposition Time: 03:00 Condition: GOOD Discharge Instructions (ExitCare): Stomach Ache and Stomach Upset Additional Instructions: MOSEH GUTIERREZ, thank you for letting us take care of you today. Your provider was Lui Ortiz and you were treated for BACK/RIB PAIN. The emergency medical care you received today was directed at your acute symptoms. If you were prescribed any medication, please fill it and take as directed. It may take several days for your symptoms to resolve. Return to the Emergency Department if your symptoms worsen, do not improve, or if you have any other problems. Please contact your doctor or call one of the physicians/clinics you have been referred to that are listed on the Patient Visit Information form that is included in your discharge packet. Bring any paperwork you were given at discharge with you along with any medications you are taking to your follow up visit. Our treatment cannot replace ongoing medical care by a primary care provider outside of the emergency department. Thank you for allowing the [facility] team to be part of your care today. If you had an X-Ray or CT scan: A Radiologist will review the ED reading if any change in treatment is needed we will contact you. If you had a blood, urine, or wound culture: It will take several days for the results, if any change in treatment is needed we will contact you. If you had an STI test: It will take 48 hours for the results. Please call after 1 week if you have not heard back. Referrals: Luis Manuel Enriquez MD [Staff Provider] - Follow up with primary Clarissa Kilpatrick MD [Medical Doctor] - Follow up with primary Forms: [email or web address] ([place])
[2018-05-14 00:38] LABS: VENOUS BLOOD GAS BASE EXCESS 1.5 mmol/L (0.0-2.0); VENOUS BLOOD GAS PO2 45 mm/Hg (30-55); VENOUS BLOOD PH 7.33 (7.32-7.43)
[2018-05-14 00:43] LABS: BASO # 0.03 K/mm3 (0.0-2.0); BASO % 0.4 % (0.0-3.0); EOS # 0.2 (0.0-0.7); EOS % 2.7 % (1.5-5.0); GRAN # 3.3 (1.4-6.5); GRAN % 41.8 % (50.0-68.0); HEMOGLOBIN 13.2 g/dL (14.0-18.0); LYMPH # 3.9 (1.2-3.4); MEAN CELL VOLUME 88.1 fl (80.0-105.0); MEAN CORPUSCULAR HEMOGLOBIN 29.6 pg (25.0-35.0); MEAN CORPUSCULAR HGB CONC 33.6 g/dl (31.0-37.0); MONO # 0.5 (0.1-0.6); MONO % 6.1 % (1.0-6.0); RBC 4.46 10^6/uL (3.5-6.1); RED CELL DISTRIBUTION WIDTH 12.8 % (11.5-14.5); URINE BILIRUBIN NEGATIVE (NEGATIVE); URINE BLOOD NEGATIVE (NEGATIVE); URINE GLUCOSE (UA) NEGATIVE (NEGATIVE); URINE LEUKOCYTE ESTERASE NEGATIVE Leu/uL (NEGATIVE); URINE PROTEIN TRACE mg/dL (<30 mg/dL); URINE UROBILINOGEN 0.2 E.U./dL (<1 E.U./dL); WHITE BLOOD COUNT 7.9 10^3/ul (4.5-11.0)
[2018-05-14 00:49] LABS: ALB/GLOB RATIO 1.5 (1.1-1.8); ALBUMIN 4.4 g/dL (3.0-4.8); ALT/SGPT 23 U/L (7-56); AST/SGOT 25 U/L (17-59); BLOOD UREA NITROGEN 26 mg/dL (7-21); CALCIUM 9.4 mg/dL (8.4-10.5); GFR NON-AFRICAN AMERICAN > 60; LIPASE 86 U/L (23-300); URINE APPEARANCE CLEAR (CLEAR); URINE COLOR YELLOW (YELLOW)
[2018-05-14 00:57] LABS: URINE BACTERIA FEW (NEG); URINE EPITHELIAL CELLS 0 - 2 /hpf (0-5); URINE RBC 0 - 2 /hpf (0-2); URINE WBC 0 - 2 /hpf (0-6)
[2018-05-14] MEDS ORDERED: Iohexol 350 MG/100 ML VIAL ONE (01:38)
[2018-05-14 02:41] VITALS: RESP 14
[2018-05-14 04:03] VITALS: TEMP 97.9; O2SAT 96
[2018-05-14 04:04] VITALS: BP 98/57
[2018-05-14 04:06] VITALS: PULSE 52
--- NOTE | 2018-05-14 10:06 | CT ---
Date of service: 05/14/2018 PROCEDURE: CT Abdomen and Pelvis with contrast HISTORY: Abdominal pain COMPARISON: 07/10/2017. TECHNIQUE: CT scan of the abdomen and pelvis was performed after administration of intravenous contrast. Oral contrast was not administered. Coronal and sagittal reformatted images were obtained. Contrast dose: 100 mL Omnipaque 350 Radiation dose: Total exam DLP = 424.65 mGy-cm. This CT exam was performed using one or more of the following dose reduction techniques: Automated exposure control, adjustment of the mA and/or kV according to patient size, and/or use of iterative reconstruction technique. FINDINGS: LOWER THORAX: Unremarkable. LIVER: Normal in size with homogeneous enhancement. Minimal periportal edema. No gross lesion or ductal dilatation. GALLBLADDER AND BILE DUCTS: The gallbladder is contracted. PANCREAS: Normal in size with homogeneous enhancement. No gross lesion or ductal dilatation. SPLEEN: Normal in size and appearance. ADRENALS: No discrete nodule. KIDNEYS AND URETERS: Normal in size with homogeneous enhancement. No hydronephrosis. No solid mass. Simple cortical cyst in the right interpolar region. VASCULATURE: No aortic aneurysm. BOWEL: The small bowel loops are normal in caliber. There is scattered colonic diverticulosis without CT evidence for acute diverticulitis. . There is fluid in the stomach, small bowel and colon. No bowel obstruction. APPENDIX: Normal appendix. PERITONEUM: No free fluid. No free air. LYMPH NODES: Subcentimeter mesenteric lymph nodes are likely reactive in etiology BLADDER: Grossly normal in appearance. REPRODUCTIVE: The prostate gland is normal in size. BONES: No acute fracture. OTHER FINDINGS: None. IMPRESSION: Fluid in the stomach, small bowel and colon could represent nonspecific enterocolitis. No other acute findings. A preliminary report was provided by [employer].
== END 2018-05-14 04:07 | disposition home or self-care (01) ==
LOC: ED 22:34
DX: R10.33 Periumbilical pain (principal)
CPT/HCPCS: 74177; 80053; 81001; 82803; 83690; 85025; 96374; 99285; J7030; Q9967